=== PATIENT | male | born 1975 | race Caucasian/White ===

== ENCOUNTER 2020-06-19 08:07 | Outpatient (CLI) | payer BC ==
--- NOTE | 2020-06-19 09:30 | CT ---
CT ANGIOGRAM ABDOMEN WITH AND WITHOUT CONTRAST: HISTORY: Essential hypertension. COMPARISON: None. FINDINGS: CT angiogram of the abdomen performed after the intravenous administration of contrast. Three-D rend ering provided. Lung bases are clear. No pericardial effusion. The aortic contour was normal. No aneurysm. No dis section. The liver, spleen, pancreas, and adrenal glands are unremarkable. There is a hypodensity in the mauro pheral aspect superior pole left kidney measuring 6 mm and too small to fully characterize, although it does measure less than 14 Hounsfield units and is relatively homogeneous. No dilated loops of bowel in the abdomen. Celiac trunk and superior mesenteric arteries are patent. Inferior mesenteric artery is patent. Single right renal artery which is patent. There are 2 left renal arteries, both of which are patent . Normal proximal small bowel rotation. IMPRESSION: 1. Normal abdomen CT angiogram. No aortic dissection or aneurysmal dilatation. 2. 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 POS: [facility]
[2020-06-19] MEDS ORDERED: Iopamidol 370 76% 100 ML VIAL ONE (13:21)
== END 2020-06-19 08:08 | disposition home or self-care (01) ==
LOC: CT 08:07
PROVIDERS: ATTEND Family Medicine
DX: I10 Essential (primary) hypertension (principal)
CPT/HCPCS: 74175; Q9967

== ENCOUNTER 2021-08-05 08:42 | Outpatient (CLI) | payer BC ==
[2021-08-05 10:36] LABS: Hemoglobin 13.7 g/dL (13.5-17.5); Mean Corpuscular HGB CONC 33.1 g/dL (32.0-36.0); Mean Corpuscular Hemoglobin 27.6 pg (27.0-33.0); Mean Corpuscular Volume 83.5 fl (81.2-95.1); Mean Platelet Volume 11.3 fl (7.4-10.4); Platelet Count 229 10x3/uL (150-450); RBC Distribution Width 14.9 % (11.5-14.5); Red Blood Cell (RBC) Count 4.96 10x6/uL (4.32-5.72); White Blood Cell (WBC) Count 4.9 10x3/uL (3.5-10.5)
[2021-08-05 10:58] LABS: PTT 28.7 sec (22.0-33.0); Prothrombin Time 11.4 sec (9.5-12.1)
[2021-08-05 11:01] LABS: Anion Gap 14 mmol/L (10-20); BUN (Urea Nitrogen) 26 mg/dL (8.9-20.6); Calc. Creatinine Clearance 0 mL/min (70-130); Carbon Dioxide 23 mmol/L (22-29); Chloride 109 mmol/L (98-107); Potassium 4.4 mmol/L (3.5-5.1); Sodium 142 mmol/L (136-145)
[2021-08-05 11:02] LABS: Calcium 9.4 mg/dL (7.8-10.44); Glucose 102 mg/dL (70-105)
[2021-08-05 16:45] LABS: SARS-CoV-2 PCR by NAA Not Detected (NotDetected)
== END 2021-08-05 08:43 | disposition home or self-care (01) ==
LOC: LABBT 08:42
PROVIDERS: ATTEND Internal Medicine Cardiovascular Disease
DX: Z01.812 Encounter for preprocedural laboratory examination (principal); Z20.822 Contact with and (suspected) exposure to COVID-19
CPT/HCPCS: 80048; 85027; 85610; 85730; 93798; U0003; U0005

== ENCOUNTER 2021-08-10 08:14 | Day surgery (SDC) | payer BC ==
[2021-08-06 15:25] VITALS: BMI 34.7
[2021-08-10] MEDS ORDERED: Fentanyl 100 MCG/2 ML VIAL ONE (09:34)
[2021-08-10] MEDS ORDERED: SUGAMMADEX SODIUM 200 MG/2 ML VIAL ONE (09:35)
[2021-08-10] MEDS ORDERED: Midazolam HCl 2 mg/2 ml Vial ONE (09:35)
[2021-08-10] MEDS ORDERED: Phenylephrine 10 MG/ML VIAL ONE (09:35)
[2021-08-10] MEDS ORDERED: Heparin 25,000 units/D5W 500 ML ONE (10:40)
[2021-08-10] MEDS ORDERED: Heparin 10,000 UNITS/ 10 ML VIAL ONE (10:40)
[2021-08-10] MEDS ORDERED: Isoproterenol 0.2 MG/1 ML AMP ONE (10:49)
[2021-08-10] MEDS ORDERED: PROPOFOL 200 MG/20 ML VIAL ONE (11:26)
[2021-08-10] MEDS ORDERED: Glycopyrrolate 0.2 MG/ML 5 ML SYRINGE ONE (11:26)
[2021-08-10] MEDS ORDERED: Lidocaine 1% PF 5 ML VIAL ONE (11:26)
[2021-08-10] MEDS ORDERED: Dexamethasone 20 MG/5 ML VIAL ONE (11:26)
[2021-08-10] MEDS ORDERED: Rocuronium Bromide 10 MG/ML (10ML VIAL) ONE (11:26)
[2021-08-10] MEDS ORDERED: Ondansetron PF 4 MG/2 ML Vial ONE (11:26)
[2021-08-10] MEDS ORDERED: Calcium Chloride 1 GM/10 ML Abboject SYRINGE ONE (11:26)
[2021-08-10] MEDS ORDERED: Ketorolac Tromethamine 30 MG/ML VIAL ONE (11:26)
[2021-08-10] MEDS ORDERED: Ketorolac Tromethamine 30 MG/ML VIAL IVP PRN (15:00)
[2021-08-10] MEDS ORDERED: Furosemide 40 MG TAB PO PRN (15:00)
[2021-08-10] MEDS ORDERED: Potassium Chloride 20 MEQ TAB PO PRN (15:00)
[2021-08-10] MEDS ORDERED: Protamine Sulfate 50 MG/5 ML VIAL ONE (15:11)
[2021-08-10] MEDS ORDERED: Sucralfate 1 GM TAB PO SCH (17:00)
[2021-08-10] MEDS ORDERED: Apixaban 5 MG TAB PO SCH (21:00)
[2021-08-10] MEDS ORDERED: Carvedilol 25 MG TAB PO SCH (21:00)
[2021-08-10] MEDS ORDERED: Isosorbide Dinitrate 20 MG TAB PO SCH (21:00)
[2021-08-10] MEDS ORDERED: Sacubitril 49 MG/Valsartan 51 MG TABLET PO SCH (21:00)
[2021-08-11] MEDS ORDERED: Potassium Chloride 20 MEQ TAB PO SCH (08:00)
[2021-08-11] MEDS ORDERED: hydrALAZINE 25 MG TAB PO SCH (09:00)
[2021-08-11] MEDS ORDERED: Aspirin 81 mg Enteric Coated Tablet PO SCH (09:00)
[2021-08-11] MEDS ORDERED: metFORMIN 500 MG TAB PO SCH (09:00)
== END 2021-08-10 19:33 | disposition home or self-care (01) ==
LOC: CCL 08:14
PROVIDERS: ATTEND Internal Medicine Cardiovascular Disease
PROC: 4A0234Z Measurement of Cardiac Electrical Activity, Percutaneous Approach (ICD-10-PCS; principal; 2021-08-10)
PROC: 4A023FZ Measurement of Cardiac Rhythm, Percutaneous Approach (ICD-10-PCS; principal; 2021-08-10)
PROC: B244ZZ3 Ultrasonography of Right Heart, Intravascular (ICD-10-PCS; principal; 2021-08-10)
PROC: 02K83ZZ Map Conduction Mechanism, Percutaneous Approach (ICD-10-PCS; principal; 2021-08-10)
PROC: 02583ZZ Destruction of Conduction Mechanism, Percutaneous Approach (ICD-10-PCS; principal; 2021-08-10)
DX: I48.19 Other persistent atrial fibrillation (principal); I11.0 Hypertensive heart disease with heart failure; I50.9 Heart failure, unspecified; I42.8 Other cardiomyopathies; I48.92 Unspecified atrial flutter; E11.9 Type 2 diabetes mellitus without complications; Z87.891 Personal history of nicotine dependence; Z79.01 Long term (current) use of anticoagulants; Z79.82 Long term (current) use of aspirin; Z79.84 Long term (current) use of oral hypoglycemic drugs; Z79.899 Other long term (current) drug therapy
CPT/HCPCS: 85347; 93005; 93613; 93622; 93623; 93656; 93657; 93662; C1732; C1759; J1100; J1644; J1885; J2250; J2370; J2405; J2704; J2720; J3010